=== PATIENT | male | born 1975 | race Caucasian/White ===

== ENCOUNTER 2019-06-26 14:31 | Emergency (ER) | payer SELFPAY ==
[2019-06-26] MEDS ORDERED: TETRACAINE HCL 0.5% OPH SOLN 4 ML OS ONE (14:50)
[2019-06-26] MEDS ORDERED: DIPH/PERTUSS(ACELL)/TETANUS VAC/PF 0.5 ML SYR (>=10YO) IM ONE (14:52)
--- NOTE | 2019-06-26 14:52 | ER Document Report ---
ED Medical Screen (RME) - General Chief Complaint: Eye Pain Stated Complaint: LEFT EYE PAIN Time Seen by Provider: 06/26/19 14:49 Primary Care Provider: IAN CHOI [Primary Care Provider] - Follow up as needed - HPI Notes: 06/26/19 14:50 Patient is a 44-year-old male who presents complaining of foreign body sensation left eye x2 days [place] the [place]. Patient believes that it may have been sand or something in his eye. He has tried irrigating with no relief. He does not wear contact lenses. No fever or headache. I have treated and performed a rapid initial assessment of this patient. A comprehensive ED assessment and evaluation of the patient, analysis of test results and completion of medical decision making process will be conducted by additional ED providers. PHYSICAL EXAMINATION: GENERAL: Well-appearing, well-nourished and in no acute distress. A&Ox4. Answers questions appropriately. Left eye: There is a foreign body noted to white light to the mid corneal area that is dark in color. + injection. - Related Data Allergies/Adverse Reactions: No Known Allergies Allergy (Unverified 06/26/19 14:50) Physical Exam - Vital signs Vitals: Temp Pulse Resp BP Pulse Ox 98.3 F 97 18 191/94 H 100 06/26/19 14:37 06/26/19 14:37 06/26/19 14:37 06/26/19 14:37 06/26/19 14:37 Course - Vital Signs Vital signs: Temp Pulse Resp BP Pulse Ox 98.3 F 97 18 191/94 H 100 06/26/19 14:37 06/26/19 14:37 06/26/19 14:37 06/26/19 14:37 06/26/19 14:37 Doctor's Discharge - Discharge Referrals: IAN CHOI [Primary Care Provider] - Follow up as needed
[2019-06-26] MEDS ORDERED: KETOROLAC TROMETHAMINE 0.45% 4 DROP/0.4 ML DROPERETTE OU ONE (16:48)
[2019-06-26] MEDS ORDERED: ERYTHROMYCIN 0.5% OPH OINT 1 GM UNIT DOSE OS ONE (18:27)
[2019-06-26] MEDS ORDERED: CYCLOPENTOLATE HCL 1% OPH SOLN 2 ML OU ONE (19:07)
--- NOTE | 2019-06-26 19:07 | ER Document Report ---
ED Eye Complaint - General Chief Complaint: Foreign Body in Eye Stated Complaint: LEFT EYE PAIN Time Seen by Provider: 06/26/19 14:49 Primary Care Provider: KAM CASTELLANOS DO [ACTIVE STAFF] - 06/30/19 Notes: Patient is a very pleasant 44-year-old male who comes in complaining of left eye pain. Patient was at the beach yesterday and felt something blow in his face. Rubbed his eye and has had pain since. 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 He does not wear contacts. No purulent drainage. No other symptoms or concerns. States that it feels like his eyes burning. Pain has been moderate. No difficulty with vision but the light is bothering his left eye. - Related Data Allergies/Adverse Reactions: No Known Allergies Allergy (Unverified 06/26/19 14:50) Past Medical History - Social History Smoking Status: Current Every Day Smoker Lives with: Family Family History: Reviewed & Not Pertinent Patient has suicidal ideation: No Patient has homicidal ideation: No - Past Medical History Cardiac Medical History: Reports: Hx Hypertension - uncontrolled Pulmonary Medical History: Reports: Hx Bronchitis Past Surgical History: Reports: Hx Appendectomy, Hx Tonsillectomy Review of Systems - Review of Systems -: Yes All other systems reviewed and negative Physical Exam - Vital signs Vitals: Temp Pulse Resp BP Pulse Ox 98.3 F 97 18 191/94 H 100 06/26/19 14:37 06/26/19 14:37 06/26/19 14:37 06/26/19 14:37 06/26/19 14:37 Interpretation: Normal - General General appearance: Appears well, Alert - HEENT Head: Normocephalic, Atraumatic Eyes: Normal Cornea: Embedded foreign body Extraocular movements intact: Yes Pupils: PERRL Visual acuity- Right eye: 20/20 Visual acuity- Left eye: 20/40 Visual acuity- Both eyes: 20/20 Corrective lenses worn: No - Respiratory Respiratory status: No respiratory distress Chest status: Nontender Breath sounds: Normal Chest palpation: Normal - Cardiovascular Rhythm: Regular Heart sounds: Normal auscultation Murmur: No - Abdominal Inspection: Normal Distension: No distension Bowel sounds: Normal Tenderness: Nontender Organomegaly: No organomegaly - Back Back: Normal, Nontender - Extremities General upper extremity: Normal inspection, Nontender, Normal color, Normal ROM, Normal temperature General lower extremity: Normal inspection, Nontender, Normal color, Normal ROM, Normal temperature, Normal weight bearing. No: Katie's sign - Neurological Neuro grossly intact: Yes Cognition: Normal Orientation: AAOx4 [place] Coma Scale Eye Opening: Spontaneous [place] Coma Scale Verbal: Oriented [place] Coma Scale Motor: Obeys Commands [place] Coma Scale Total: 15 Speech: Normal Motor strength normal: LUE, RUE, LLE, RLE Sensory: Normal - Psychological Associated symptoms: Normal affect, Normal mood - Skin Skin Temperature: Warm Skin Moisture: Dry Skin Color: Normal Course - Re-evaluation Re-evalutation: 06/26/19 Patient with a foreign body, small piece of metal in his left eye that has been removed with a 18-gauge needle in the emergency department. Patient states that he is feeling better. 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 Dr. Castellanos was contacted and can see the patient Saturday in the office. Given prescription for Acular and erythromycin ointment. Follow-up in the office Saturday as instructed. Understands and agrees with plan. Stable for discharge. Return if any worsening or concerning symptoms. Grateful for care. - Vital Signs Vital signs: Temp Pulse Resp BP Pulse Ox 97.6 F 93 18 153/94 H 95 06/26/19 19:29 06/26/19 19:29 06/26/19 14:37 06/26/19 19:29 06/26/19 19:29 Procedures - Eye Procedure Left Foreign body removal: Left Alcaine Drops Administered: Yes Acular drops administered: Left Fluorescein applied: Left Antibiotic Oinment/Drps Admin: Left eye Cyclogel 2 Drops Administered: Left eye Slit lamp used: No Notes: 06/26/19 Small piece of metal removed but still with rust ring over pupil Discharge - Discharge Clinical Impression: Corneal rust ring of left eye, Iritis Foreign body in eye Qualifiers: Encounter type: initial encounter Laterality: left Qualified Code(s): T15.92XA - Foreign body on external eye, part unspecified, left eye, initial encounter Condition: Stable Disposition: HOME, SELF-CARE Instructions: Corneal Foreign Body with Rust ([facility]) Prescriptions: Ketorolac Tromethamine 0.45% [Acuvail 0.45% Oph Soln 0.4 ml/Dropperette] 1 drop OS TID #2 droperette Erythromycin Base [Erythromycin Oph 1 Gm Oint Ud] 1 applic OS QID #1 tube Forms: Return to Work Referrals: KAM CASTELLANOS DO [ACTIVE STAFF] - 06/30/19
[2019-06-26 19:30] VITALS: BP 153/94
== END 2019-06-26 20:26 | disposition home or self-care (01) ==
LOC: ER 14:31
DX: T15.92XA Foreign body on external eye, part unspecified, left eye, initial encounter (principal); H18.00 Unspecified corneal deposit; H20.9 Unspecified iridocyclitis; W22.8XXA Striking against or struck by other objects, initial encounter; F17.200 Nicotine dependence, unspecified, uncomplicated; I10 Essential (primary) hypertension
CPT/HCPCS: 99283; 90471; 90715; J3490 ×2